=== PATIENT | male | born 1945 | race Caucasian/White ===

== ENCOUNTER → 2019-07-19 | Day surgery (SDC) | payer MEDICARE, BC | LOC: MSO 10:22 | DX: H25.812 Combined forms of age-related cataract, left eye (principal); I11.0 Hypertensive heart disease with heart failure; I50.9 Heart failure, unspecified; M10.9 Gout, unspecified; Z87.891 Personal history of nicotine dependence | CPT/HCPCS: 00142; J0171; J2250; V2632 ==

== ENCOUNTER 2020-11-25 17:25 | Outpatient (RCR) | payer MEDICARE, BC ==
[2020-11-13 18:08] VITALS: BP 116/72
--- NOTE | 2020-11-13 18:24 | NUR ---
PATIENT UNABLE TO RECALL CURRENT MEDICATIONS. WILL BRING LIST TO REVIEW ON October.
[2020-11-14 18:50] VITALS: BP 117/69
[2020-11-15 18:13] VITALS: BP 128/92
[2020-11-16 18:05] VITALS: BP 100/67
[2020-11-17 18:00] VITALS: BP 102/64
[2020-11-18 18:20] VITALS: BP 125/52
[2020-11-19 18:29] VITALS: BP 114/66
[2020-11-20 20:30] VITALS: BP 130/52
[2020-11-21 18:07] VITALS: BP 110/67
[2020-11-22 18:10] VITALS: BP 107/62
[2020-11-23 18:09] VITALS: BP 148/67
[2020-11-24 18:30] VITALS: BP 101/51
--- NOTE | 2020-11-24 18:40 | NUR ---
Pt states that he is having surgery on his left knee tomorrow with some block and antibiotic. Pt states he will not be in for a couple of days. Pt verbalizes understanding that he will need a new order when he returns to have future antibiotics.
[2020-11-25 17:35] VITALS: BP 104/68
== END 2020-11-25 19:00 | disposition home or self-care (01) ==
LOC: AMSURD 17:25
DX: A49.02 Methicillin resistant Staphylococcus aureus infection, unspecified site (principal); Z96.652 Presence of left artificial knee joint
CPT/HCPCS: J0878; J1644

== ENCOUNTER → 2020-11-25 | Outpatient (CLI) | payer MEDICARE, BC ==
[2020-11-18 18:37] LABS: HEMATOCRIT 29.5 % (42.0-52.0); HEMOGLOBIN 9.3 g/dL (13.5-18.0); MEAN PLATELET VOLUME 9.2 fl (7.4-10.4); RED BLOOD COUNT 3.73 M/mm3 (4.20-5.60); RED CELL DISTRIBUTION WIDTH 18.5 % (11.5-14.5)
[2020-11-18 18:41] LABS: ALBUMIN 3.2 g/dL (3.4-4.8)
[2020-11-18 18:43] LABS: CALCIUM 8.3 mg/dL (8.3-10.5)
[2020-11-18 18:44] LABS: TOTAL PROTEIN 6.5 g/dL (6.2-8.1)
[2020-11-18 18:46] LABS: TOTAL BILIRUBIN 0.4 mg/dL (0.2-1.2)
[~2020-11-25] MED LIST: ALLOPURINOL300 M1 PO; COMPAZINE10 M2 PO; COREG 3.123.125 MG/T PO; DECADRON 4MG TAB4 MG PO; DIFLUCAN100 M1 PO; DOCUSATE SODIUM1 TA3 PO; FLOMAX0.4 MG PO; LASIX40 M1 PO; MIRALAX17 GM PO; NEURONTIN100 M1 PO; ONDANSETRON ODT8 MG PO; TRENTAL 400MG400 MG PO; TYLENOL EXTRA500 M2 PO; WARFARIN SODIUM6 MG PO
[2020-11-25 18:44] LABS: HEMATOCRIT 31.8 % (42.0-52.0); HEMOGLOBIN 9.9 g/dL (13.5-18.0); RED BLOOD COUNT 3.99 M/mm3 (4.20-5.60); RED CELL DISTRIBUTION WIDTH 19.2 % (11.5-14.5); WHITE BLOOD COUNT 8.9 K/mm3 (4.8-10.8)
[2020-11-25 18:45] LABS: ALBUMIN 3.3 g/dL (3.4-4.8); POTASSIUM 3.8 mmol/L (3.5-5.1)
[2020-11-25 18:46] LABS: CALCIUM 8.6 mg/dL (8.3-10.5)
[2020-11-25 18:48] LABS: TOTAL PROTEIN 6.7 g/dL (6.2-8.1)
[2020-11-25 18:50] LABS: TOTAL BILIRUBIN 0.5 mg/dL (0.2-1.2)
== END ==
LOC: LAB 11-18 12:12
PROVIDERS: Internal Medicine Infectious Disease
DX: A49.02 Methicillin resistant Staphylococcus aureus infection, unspecified site (principal); T84.54XA Infection and inflammatory reaction due to internal left knee prosthesis, initial encounter

== ENCOUNTER → 2021-04-07 | Outpatient (CLI) | payer MEDICARE, BC | LOC: LAB 15:50 | DX: Z86.14 Personal history of Methicillin resistant Staphylococcus aureus infection (principal); Z79.2 Long term (current) use of antibiotics ==

== ENCOUNTER 2021-04-09 16:52 | Outpatient (RCR) | payer MEDICARE, BC ==
[2021-04-07 16:14] VITALS: BP 93/62
[2021-04-08 17:10] VITALS: BP 96/42
[~2021-04-09] VITALS: Ht 175.3 cm; Wt 100.0 kg
[2021-04-09 16:59] VITALS: BP 115/88
== END 2021-04-09 20:00 | disposition home or self-care (01) ==
LOC: AMSURD 16:52
DX: Z86.14 Personal history of Methicillin resistant Staphylococcus aureus infection (principal)
CPT/HCPCS: J0878

== ENCOUNTER 2024-04-19 11:29 | Emergency (ER) | payer MEDICARE, BC ==
[~2024-04-19] VITALS: Ht 175.3 cm; Wt 109.1 kg
[2024-04-19] MEDS ORDERED: Tdap Vaccine 0.5 ML SYRINGE IM ONE (12:15)
[2024-04-19] MEDS ORDERED: ALDACTONE 25MG25 MG PO (12:16)
[2024-04-19] MEDS ORDERED: JARDIANCE10 MG PO (12:21)
[2024-04-19] MEDS ORDERED: FUROSEMIDE20 MG PO (12:24)
[2024-04-19] MEDS ORDERED: LEVOTHYROXIN0.088 MG PO (12:24)
[2024-04-19] MEDS ORDERED: WARFARIN SODIUM4 MG PO (12:27)
[2024-04-19] MEDS ORDERED: LOSARTAN POTASS25 MG PO (12:28)
[2024-04-19] MEDS ORDERED: VIBRAMYCIN HYC100 MG PO (12:30)
[2024-04-19] MEDS ORDERED: cefTRIAXone 1 G in Water For Injection,Sterile 10 ML IV ONE (13:00)
[2024-04-19] MEDS ORDERED: NORCO 325 MG-51 TA1 PO (15:17)
[2024-04-19] MEDS ORDERED: CEPHALEXIN500 M1 PO (15:17)
[2024-04-19 15:49] VITALS: BP 104/88
== END 2024-04-19 15:51 | disposition home or self-care (01) ==
LOC: ED 11:29
DX: S91.312A Laceration without foreign body, left foot, initial encounter (principal); I48.91 Unspecified atrial fibrillation; Z85.828 Personal history of other malignant neoplasm of skin; Z95.810 Presence of automatic (implantable) cardiac defibrillator; Z92.21 Personal history of antineoplastic chemotherapy; Z92.3 Personal history of irradiation; Z79.01 Long term (current) use of anticoagulants; X50.1XXA Overexertion from prolonged static or awkward postures, initial encounter
CPT/HCPCS: 90715; J0696

== ENCOUNTER → 2024-04-26 | Outpatient (CLI) | payer MEDICARE, BC ==
[~2024-04-26] VITALS: Ht 175.3 cm; Wt 109.1 kg
[~2024-04-26] MED LIST changes: +ALDACTONE 25MG25 MG PO; +CEPHALEXIN500 M1 PO; +FUROSEMIDE20 MG PO; +JARDIANCE10 MG PO; +LEVOTHYROXIN0.088 MG PO; +LOSARTAN POTASS25 MG PO; +NORCO 325 MG-51 TA1 PO; +VIBRAMYCIN HYC100 MG PO; +WARFARIN SODIUM4 MG PO
[2024-04-26 17:10] VITALS: BP 105/66
== END ==
LOC: WOUND 15:34
DX: S91.301A Unspecified open wound, right foot, initial encounter (principal)
CPT/HCPCS: 18897; 19064; A6261

== ENCOUNTER → 2024-05-03 | Outpatient (CLI) | payer MEDICARE, BC ==
[~2024-05-03] MED LIST changes: +BACTRIM DS TAB1 EACH PO
[2024-05-03 09:05] VITALS: BP 104/69
[2024-05-03 10:41] LABS: BASO # 0.02 K/mm3 (0.02-0.10); EOS # 0.16 K/mm3 (0.04-0.40); EOS % 2.2 % (0.0-4.0); HEMATOCRIT 35.5 % (42.0-52.0); HEMOGLOBIN 11.1 g/dL (13.5-18.0); LYMPH# 0.61 K/mm3 (1.50-4.00); MEAN CELL VOLUME 85 fl (78-100); MEAN CORPUSCULAR HEMOGLOBIN 27 pg (27-31); MEAN CORPUSCULAR HGB CONC 31 g/dL (33-37); MEAN PLATELET VOLUME 8.9 fl (7.4-10.4); MONO # 0.85 K/mm3 (0.20-0.80); NEU # 5.68 K/mm3 (1.40-6.50); PLATELET COUNT 279 K/mm3 (130-400); RED BLOOD COUNT 4.18 M/mm3 (4.20-5.60); RED CELL DISTRIBUTION WIDTH 16.3 % (11.5-14.5); WHITE BLOOD COUNT 7.4 K/mm3 (4.8-10.8)
== END ==
LOC: WOUND 09:01 → LAB 09:01
DX: S91.301A Unspecified open wound, right foot, initial encounter (principal)
CPT/HCPCS: 18893; 18897; A6197

== ENCOUNTER → 2024-05-10 | Outpatient (CLI) | payer MEDICARE, BC ==
[~2024-05-10] VITALS: Ht 175.3 cm; Wt 109.1 kg
--- NOTE | 2024-05-10 09:07 | NUR ---
SEE PROVIDER NOTE FROM Monisha THOMPSON APRN
[2024-05-10 09:08] VITALS: BP 117/79
== END ==
LOC: WOUND 09:02
DX: S91.301A Unspecified open wound, right foot, initial encounter (principal)
CPT/HCPCS: 18893; 18895; 18897; A6021; A6197

== ENCOUNTER → 2024-05-12 | Outpatient (CLI) | payer MEDICARE, BC ==
[~2024-05-12] VITALS: Ht 175.3 cm; Wt 109.1 kg
[2024-05-12 09:21] VITALS: BP 102/69
--- NOTE | 2024-05-12 09:23 | NUR ---
see provider note from billy clarke aprn
== END ==
LOC: WOUND 08:51
DX: S91.301A Unspecified open wound, right foot, initial encounter (principal)
CPT/HCPCS: 18893; 18897; A6197

== ENCOUNTER → 2024-05-15 | Outpatient (CLI) | payer MEDICARE, BC ==
[~2024-05-15] VITALS: Ht 175.3 cm; Wt 109.1 kg
[2024-05-15 13:59] VITALS: BP 117/81
== END ==
LOC: WOUND 13:30
DX: S91.301A Unspecified open wound, right foot, initial encounter (principal)
CPT/HCPCS: 18897

== ENCOUNTER → 2024-05-19 | Outpatient (CLI) | payer MEDICARE, BC ==
[~2024-05-19] VITALS: Ht 175.3 cm; Wt 109.1 kg
[2024-05-19 17:01] VITALS: BP 105/69
== END ==
LOC: WOUND 14:51
DX: L08.9 Local infection of the skin and subcutaneous tissue, unspecified (principal)
CPT/HCPCS: 18895; 18897; 19899; A6021

== ENCOUNTER → 2024-05-23 | Outpatient (CLI) | payer MEDICARE, BC ==
[~2024-05-23] VITALS: Ht 175.3 cm; Wt 109.1 kg
--- NOTE | 2024-05-23 15:10 | NUR ---
SEE PROVIDER NOTE FROM Monisha THOMPSON APRN
[2024-05-23 15:17] VITALS: BP 101/66
== END ==
LOC: WOUND 15:05
DX: S91.301A Unspecified open wound, right foot, initial encounter (principal)
CPT/HCPCS: 18897; 19064; A6261

== ENCOUNTER → 2024-05-23 | Outpatient (RCR) | payer MEDICARE, BC ==
[2024-05-19 15:36] VITALS: BP 105/69
[2024-05-19 15:52] LABS: HEMATOCRIT 35.5 % (42.0-52.0); HEMOGLOBIN 11.3 g/dL (13.5-18.0); MEAN CELL VOLUME 83 fl (78-100); MEAN CORPUSCULAR HEMOGLOBIN 27 pg (27-31); MEAN CORPUSCULAR HGB CONC 32 g/dL (33-37); MEAN PLATELET VOLUME 9.3 fl (7.4-10.4); PLATELET COUNT 230 K/mm3 (130-400); RED BLOOD COUNT 4.27 M/mm3 (4.20-5.60); RED CELL DISTRIBUTION WIDTH 15.2 % (11.5-14.5); WHITE BLOOD COUNT 5.8 K/mm3 (4.8-10.8)
[2024-05-19 15:59] LABS: CALCIUM 9.7 mg/dL (8.3-10.5)
[2024-05-19 16:01] LABS: TOTAL PROTEIN 7.3 g/dL (6.2-8.1)
[2024-05-19 16:02] LABS: TOTAL BILIRUBIN 0.4 mg/dL (0.2-1.2)
[2024-05-19 16:19] LABS: LYMPHOCYTE 9 % (20-51); MONOCYTE 9 % (3-10); NEUTROPHILS 78 % (42-75)
[2024-05-20 16:20] VITALS: BP 94/61
[2024-05-21 16:00] VITALS: BP 89/59
[2024-05-22 15:56] VITALS: BP 104/60
[~2024-05-23] VITALS: Ht 175.3 cm; Wt 109.1 kg
[~2024-05-23] MED LIST changes: +DAPTOmycin 500 MG in NS 10 ML IV SCH
[2024-05-23 15:10] VITALS: BP 101/66
== END | disposition home or self-care (01) ==
LOC: AMSURD
DX: S99.922D Unspecified injury of left foot, subsequent encounter (principal)
CPT/HCPCS: J0878

== ENCOUNTER 2024-05-25 15:56 | Outpatient (RCR) | payer MEDICARE, BC ==
[2024-05-24 16:30] VITALS: BP 95/62
[~2024-05-25] VITALS: Ht 175.3 cm; Wt 109.1 kg
[2024-05-25 16:09] VITALS: BP 115/76
[2024-05-26 16:37] VITALS: BP 124/79
== END 2024-05-25 17:00 | disposition home or self-care (01) ==
LOC: AMSURD 15:56
DX: S91.101D Unspecified open wound of right great toe without damage to nail, subsequent encounter (principal); S91.105D Unspecified open wound of left lesser toe(s) without damage to nail, subsequent encounter; X58.XXXD Exposure to other specified factors, subsequent encounter
CPT/HCPCS: J0878

== ENCOUNTER → 2024-05-26 | Outpatient (CLI) | payer MEDICARE, BC ==
[~2024-05-26] VITALS: Ht 175.3 cm; Wt 109.1 kg
[~2024-05-26] MED LIST changes: -DAPTOmycin 500 MG in NS 10 ML IV SCH; +DOXYCYCLINE HY100 M5 PO
[2024-05-26 16:24] LABS: HEMATOCRIT 34.2 % (42.0-52.0); HEMOGLOBIN 10.8 g/dL (13.5-18.0); MEAN CELL VOLUME 84 fl (78-100); MEAN CORPUSCULAR HEMOGLOBIN 27 pg (27-31); MEAN CORPUSCULAR HGB CONC 32 g/dL (33-37); MEAN PLATELET VOLUME 9.1 fl (7.4-10.4); PLATELET COUNT 256 K/mm3 (130-400); RED BLOOD COUNT 4.08 M/mm3 (4.20-5.60); RED CELL DISTRIBUTION WIDTH 14.7 % (11.5-14.5); WHITE BLOOD COUNT 6.2 K/mm3 (4.8-10.8)
[2024-05-26 16:26] LABS: ALBUMIN 3.8 g/dL (3.4-4.8)
[2024-05-26 16:27] LABS: CALCIUM 9.5 mg/dL (8.3-10.5)
[2024-05-26 16:29] LABS: TOTAL PROTEIN 7.7 g/dL (6.2-8.1)
[2024-05-26 16:30] LABS: TOTAL BILIRUBIN 0.5 mg/dL (0.2-1.2)
[2024-05-26 16:56] LABS: LYMPHOCYTE 10 % (20-51); MONOCYTE 12 % (3-10); NEUTROPHILS 76 % (42-75)
[2024-05-26 16:59] LABS: MICROCYTOSIS 1+
[2024-05-26 17:53] VITALS: BP 124/79
--- NOTE | 2024-05-26 17:53 | NUR ---
SEE PROVIDER NOTE FROM Monisha THOMPSON APRN
== END ==
LOC: LAB 10:43 → WOUND 15:57
DX: T81.30XA Disruption of wound, unspecified, initial encounter (principal); B95.62 Methicillin resistant Staphylococcus aureus infection as the cause of diseases classified elsewhere
CPT/HCPCS: 18897; 19899

== ENCOUNTER → 2024-06-01 | Outpatient (CLI) | payer MEDICARE, BC ==
[~2024-06-01] VITALS: Ht 175.3 cm; Wt 109.1 kg
[2024-06-01 16:18] VITALS: BP 124/83
[2024-06-01 18:01] LABS: BASO # 0.02 K/mm3 (0.02-0.10); EOS # 0.23 K/mm3 (0.04-0.40); EOS % 3.2 % (0.0-4.0); HEMOGLOBIN 11.8 g/dL (13.5-18.0); LYMPH# 0.72 K/mm3 (1.50-4.00); MEAN CELL VOLUME 83 fl (78-100); MEAN CORPUSCULAR HEMOGLOBIN 27 pg (27-31); MEAN CORPUSCULAR HGB CONC 32 g/dL (33-37); MEAN PLATELET VOLUME 8.4 fl (7.4-10.4); MONO # 0.88 K/mm3 (0.20-0.80); NEU # 5.16 K/mm3 (1.40-6.50); PLATELET COUNT 320 K/mm3 (130-400); RED BLOOD COUNT 4.46 M/mm3 (4.20-5.60); RED CELL DISTRIBUTION WIDTH 14.4 % (11.5-14.5); WHITE BLOOD COUNT 7.1 K/mm3 (4.8-10.8)
[2024-06-01 18:06] LABS: ALBUMIN 4.1 g/dL (3.4-4.8)
[2024-06-01 18:07] LABS: CALCIUM 9.9 mg/dL (8.3-10.5)
[2024-06-01 18:08] LABS: TOTAL PROTEIN 7.9 g/dL (6.2-8.1)
[2024-06-01 18:10] LABS: TOTAL BILIRUBIN 0.5 mg/dL (0.2-1.2)
== END ==
LOC: WOUND 16:12
DX: T81.30XA Disruption of wound, unspecified, initial encounter (principal); R79.89 Other specified abnormal findings of blood chemistry; L08.9 Local infection of the skin and subcutaneous tissue, unspecified
CPT/HCPCS: 18897

== ENCOUNTER → 2024-06-07 | Outpatient (CLI) | payer MEDICARE, BC ==
[~2024-06-07] VITALS: Ht 175.3 cm; Wt 109.1 kg
[2024-06-07 16:02] VITALS: BP 112/73
== END ==
LOC: WOUND 15:52
DX: T81.30XA Disruption of wound, unspecified, initial encounter (principal)
CPT/HCPCS: 18897

== ENCOUNTER → 2024-06-14 | Outpatient (CLI) | payer MEDICARE, BC ==
[~2024-06-14] VITALS: Ht 175.3 cm; Wt 109.1 kg
[2024-06-14 11:43] VITALS: BP 101/69
--- NOTE | 2024-06-14 12:11 | NUR ---
PT HERE FOR WOUND CARE TO RT GREAT TOE. NOTED PT'S BP IS A LITTLE LOWER TODAY 101/69. 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 STATES HE HAS NOTICED SOME LIGHT HEADEDNES. HE IS DUE FOR LABS NEXT WEEK. HIS RT GREAT TOE DRESSING IS PRETTY BLOODY TODAY. STATES IT HAS BEEN CHANGED EVERY OTHER DAY, INSTRUCTED, BUT IT DID COME OFF IN BED ONE NIGHT. Monisha THOMPSON APRN DEBRIDED THE 2 OPEN WOUNDS ON RT GREAT TOE WITH 3MM CURETTE. THEN CLEANED WITH HIBICLENS AND DEBRISOFT LOLLY. JET LAVAGED WITH STERILE WATER. DRY FOOT WITH 4X4'S. REDRESSED BOTH WOUNDS WITH COLLAGEN, AQUACEL AG AND MEPILEX BORDER FOAM. MEASUREMENTS TAKEN AND PICS TAKEN TODAY. SEE PROVIDER NOTE FOR MEASUREMENTS. LEFT FACILITY AMBULATORY WITH [facility]. SPLUNK DASHBOARD DEVELOPER TO PICK HIM UP. STEADY GAIT. NEXT APPT 06/21/24
--- NOTE | 2024-06-19 09:51 | NUR ---
RECEIVED VOICEMAIL FROM PATIENTS DAUGHTER THAT WOUND DRESSING CHANGE HAS BEEN NEEDE DAILY DUE TO INCREASED DRAINAGE OVER THE WEEKEND, OF YESTERDAY DRIANAGE HAS BEEN NOTED TO BE A "YELLOW/GREEN COLOR". THIS RN CALLED TO RESCHEDULE PATIENT TO A SOONER DATE, PATIENT SCHEDULED FOR 06/20/24 AT 11AM.
== END ==
LOC: WOUND 11:25
DX: T81.30XA Disruption of wound, unspecified, initial encounter (principal)
CPT/HCPCS: 18893; 18895; 18897; A6021; A6197

== ENCOUNTER → 2024-06-20 | Outpatient (CLI) | payer MEDICARE, BC ==
[~2024-06-20] VITALS: Ht 175.3 cm; Wt 109.1 kg
[2024-06-20 11:02] VITALS: BP 113/71
--- NOTE | 2024-06-20 11:20 | NUR ---
PT HERE FOR WOUND CARE TO RT GREAT TOE STUMP. THERE ARE 2 WOUNDS ON PLANTAR SURFACE - THE PROXIMAL WOUND HAS A PINK WOUND BED - NO SLOUGH NOTED, MINIMAL MACERATION AROUND THE UPPER OUTER EDGE OF WOUND. WOUND MEASURES 0.8L X 0.6W NO DEPTH AND HAD MINIMAL DRAINAGE TODAY. HOWEVER DTR HAS BEEN CHANGING DRESSINGS DAILY DUE TO INCREASED DRAINAGE THAT SHE STATES IS NOW PURULENT. PT TOOK ONE OF HIS KEFLEX TABS HE HAD LEFT AND NOW THE DRAINAGE HAS SLOWED BACK DOWN. CULTURED WOUND TODAY AND WILL AWAIT SENSITIVITY REPORT BEFORE PLACING PT ON MORE ANTIBIOTICS. THE DISTAL WOUND IS COVERED WITH HARD BLACK ESCHAR TODAY. WOUND MEASURES 0.5L X 0.8W. NO DEPTH TO MEASURE. NO DRAINAGE. CLEANED WOUNDS WITH HIBICLENS AND DEBRISOFT LOLLY PRIOR TO CULTURE. JET LAVAGED WITH STERILE WATER AND PATTED DRY WITH 4X4'S. SKIN PREPPED AROUND WOUNDS. APPLIED COLLAGEN TO THE PROXIMAL WOUND BED AND COVERED BOTH WOUNDS WITH AQUACEL EXTRA AND MEPILEX BORDER FOAM. PT WILL CONTINUE TO CHANGE DRESSING DAILY AT HOME AND WILL RETURN WEDNESDAY IF DTR THINKS HE NEEDS TO BE SEEN, OTHERWISE WILL RETURN ON WEDNESDAY NEXT WEEK. SUPPLIES SENT HOME WITH PATIENT. PT LEAVES AMBULATORY WITH [facility]ALK[facility]. STATES HE WONT BE GETTING NEW SHOE INSOLES UNTIL MID-JUN NOW. CULTURE OF PROXIMAL WOUND SENT TO LAB.
--- NOTE | 2024-06-23 18:10 | NUR ---
DAUGHTER CALLED TO CHECK ON WOUND CULTURE FINAL RESULTS THIS AM, RESULTS WERE UNAVAILABLE AT THAT TIME. DAUGHTER REPORTS WANTING TO CANCEL APPT FOR TODAY. FINAL WOUND CULTURE RESULTS RECIEVED REVEALED MRSA, CALLED TO DR. VARMA INFECTIOUS DISEASE OFFICE. IGNACIO MACARIO FROM DR. VARMA OFFICE REPORTS PATIENT WILL BE SEEN ON Wednesday06/26/24 FOR ANTIBIOTIC START AND POSSIBLE SURGICAL DEBRIDEMENT.
== END ==
LOC: WOUND 10:53
DX: T81.30XA Disruption of wound, unspecified, initial encounter (principal)

== ENCOUNTER → 2024-06-27 | Outpatient (CLI) | payer MEDICARE, BC ==
[~2024-06-27] VITALS: Ht 175.3 cm; Wt 109.1 kg
[2024-06-27 14:49] VITALS: BP 117/76
--- NOTE | 2024-06-27 14:52 | NUR ---
PT HERE FOR WOUND CARE TO RT GREAT TOE. CULTURE GREW MRSA THAT WAS ONLY SUSCEPTIBLE TO VANCO. STARTED ON DAPTO TODAY. LABS DRAWN PRIOR TO MED STARTED FOR BASELINE. THE DISTAL WOUND IS A LITTLE MACERATED TODAY. PT STATES IT HAS HAD MORE DRAINAGE AND THEY HAVE BEEN CHANGING DRESSING DAILY. LAST CHANGED YESTERDAY. DEBRIDED BY Monisha THOMPSON APRN. PT RANJITH WELL. CLEANED WITH HIBICLENS AND DEBRISOFT LOLLY. JET LAVAGED WITH STERILE WATER. PATTED DRY WITH 4X4. APPLIED IODOSORB TO WOUND BED, COVERED WITH AQUACEL EXTRA AND MEPILEX BORDER FOAM. SEE PROVIDER NOTE FROM Monisha THOMPSON APRN FOR MEASUREMENTS.
[2024-06-27 15:00] LABS: ALBUMIN 4.1 g/dL (3.4-4.8)
[2024-06-27 15:01] LABS: CALCIUM 9.5 mg/dL (8.3-10.5)
[2024-06-27 15:02] LABS: TOTAL PROTEIN 7.5 g/dL (6.2-8.1)
[2024-06-27 15:04] LABS: TOTAL BILIRUBIN 0.5 mg/dL (0.2-1.2)
== END ==
LOC: WOUND 14:04
DX: T81.30XA Disruption of wound, unspecified, initial encounter (principal)
CPT/HCPCS: 18897; 19064; 19899; A6261

== ENCOUNTER → 2024-06-29 | Outpatient (CLI) | payer MEDICARE, BC ==
[2024-06-29 16:06] LABS: BASO # 0.02 K/mm3 (0.02-0.10); EOS # 0.18 K/mm3 (0.04-0.40); EOS % 2.8 % (0.0-4.0); HEMATOCRIT 37.7 % (42.0-52.0); HEMOGLOBIN 11.8 g/dL (13.5-18.0); LYMPH# 0.76 K/mm3 (1.50-4.00); MEAN CELL VOLUME 82 fl (78-100); MEAN CORPUSCULAR HEMOGLOBIN 26 pg (27-31); MEAN CORPUSCULAR HGB CONC 31 g/dL (33-37); MEAN PLATELET VOLUME 9.6 fl (7.4-10.4); MONO # 0.72 K/mm3 (0.20-0.80); NEU # 4.81 K/mm3 (1.40-6.50); PLATELET COUNT 219 K/mm3 (130-400); RED BLOOD COUNT 4.59 M/mm3 (4.20-5.60); RED CELL DISTRIBUTION WIDTH 14.7 % (11.5-14.5); WHITE BLOOD COUNT 6.5 K/mm3 (4.8-10.8)
== END ==
LOC: LAB 15:26
DX: S99.922A Unspecified injury of left foot, initial encounter (principal); I10 Essential (primary) hypertension; E78.5 Hyperlipidemia, unspecified

== ENCOUNTER → 2024-06-30 | Outpatient (CLI) | payer MEDICARE, BC ==
[~2024-06-30] VITALS: Ht 175.3 cm; Wt 109.1 kg
[2024-06-30 12:50] VITALS: BP 91/57
--- NOTE | 2024-06-30 12:50 | NUR ---
Pt arrives ambulatory for wound care to right great toe. Current dressing to right toe removed. For wound care details please see progress note from Paula Tsai APRN. Pt tolerated wound care well. Appt set up for WednesdayJul 07 @ 1100. Labs from 06/29/24 shown to COUNTY SURVEYOR. Pt continues on Dapto IV daily.
== END ==
LOC: WOUND 14:28
DX: T81.33XD Disruption of traumatic injury wound repair, subsequent encounter (principal); M00.062 Staphylococcal arthritis, left knee; B95.62 Methicillin resistant Staphylococcus aureus infection as the cause of diseases classified elsewhere; Z89.411 Acquired absence of right great toe; M96.89 Other intraoperative and postprocedural complications and disorders of the musculoskeletal system
CPT/HCPCS: 18897

== ENCOUNTER → 2024-07-26 | Outpatient (CLI) | payer MEDICARE, BC ==
[~2024-07-26] VITALS: Ht 175.3 cm; Wt 109.1 kg
[2024-07-26 12:05] VITALS: BP 112/74
--- NOTE | 2024-07-26 12:11 | NUR ---
PATIENT HERE FOR WOUND CARE TO RIGHT GREAT TOE. REPORTS LAST DRESSING CHANGE WAS ON WEDNESDAY. DRESSING REMOVED, DRIED BLOOD NOTED COVERING MOST OF THE POSTERIOR GREAT TOE. AREA MACERATED AND BOGGY. DENIES GETTING NEW INSERTS OF THIS DATE. REPORTS INCREASE IN DRAINAGE WITH THE LAST 2 DRESSING CHANGES. GREAT TOE INFLAMMED. WOUND CULTURE. ORDERS FOR XRAY TO RIGHT FOOT. HIBICLENSE AND DEBRISOFT LOLLI. COLLAGEN TO WOUND BED AND AQUACEL EXTRA AND MEPILEX BORDER FOAM. CHANGE DRESSING DAILY.
== END ==
LOC: WOUND 11:56
DX: T81.31XA Disruption of external operation (surgical) wound, not elsewhere classified, initial encounter (principal); D84.9 Immunodeficiency, unspecified; I48.91 Unspecified atrial fibrillation; Z79.01 Long term (current) use of anticoagulants; C61 Malignant neoplasm of prostate; Z92.3 Personal history of irradiation
CPT/HCPCS: A6021

== ENCOUNTER → 2024-08-06 | Outpatient (CLI) | payer MEDICARE, BC ==
[2024-08-06 16:54] LABS: HEMATOCRIT 37.5 % (42.0-52.0); MEAN PLATELET VOLUME 10.3 fl (7.4-10.4); RED BLOOD COUNT 4.73 M/mm3 (4.20-5.60); RED CELL DISTRIBUTION WIDTH 15.1 % (11.5-14.5); WHITE BLOOD COUNT 6.5 K/mm3 (4.8-10.8)
[2024-08-06 17:01] LABS: ALBUMIN 3.8 g/dL (3.4-4.8)
[2024-08-06 17:02] LABS: CALCIUM 9.5 mg/dL (8.3-10.5)
[2024-08-06 17:03] LABS: TOTAL PROTEIN 7.5 g/dL (6.2-8.1)
[2024-08-06 17:05] LABS: TOTAL BILIRUBIN 0.6 mg/dL (0.2-1.2)
== END ==
LOC: LAB 16:15
DX: S91.301A Unspecified open wound, right foot, initial encounter (principal)

== ENCOUNTER 2024-08-12 15:54 | Outpatient (RCR) | payer MEDICARE, BC ==
[2024-07-30 15:13] VITALS: BP 113/76
[2024-07-31 16:12] VITALS: BP 106/67
[2024-08-01 16:16] VITALS: BP 107/71
[2024-08-02 16:16] VITALS: BP 117/76
[2024-08-03 16:09] VITALS: BP 100/66
[2024-08-04 16:54] VITALS: BP 105/68
[2024-08-05 16:23] VITALS: BP 99/66
[2024-08-06 16:11] VITALS: BP 102/68
[2024-08-07 16:08] VITALS: BP 103/67
[2024-08-08 16:03] VITALS: BP 119/76
[2024-08-09 16:15] VITALS: BP 109/70
[2024-08-10 16:02] VITALS: BP 97/63
[2024-08-11 16:18] VITALS: BP 112/69
[~2024-08-12] VITALS: Ht 175.3 cm; Wt 109.1 kg
[~2024-08-12 15:54] MED LIST changes: +DAPTOmycin 500 MG in NS 10 ML IV SCH
[2024-08-12 16:10] VITALS: BP 102/61
== END 2024-08-12 16:30 | disposition home or self-care (01) ==
LOC: AMSURD 15:54
DX: A49.02 Methicillin resistant Staphylococcus aureus infection, unspecified site (principal)
CPT/HCPCS: A6021; J0878

== ENCOUNTER → 2024-08-12 | Outpatient (REF) | payer MEDICARE, BC ==
[2024-08-12 16:31] LABS: HEMATOCRIT 36.7 % (42.0-52.0); HEMOGLOBIN 11.8 g/dL (13.5-18.0); MEAN PLATELET VOLUME 10.6 fl (7.4-10.4); RED BLOOD COUNT 4.63 M/mm3 (4.20-5.60); RED CELL DISTRIBUTION WIDTH 15.3 % (11.5-14.5); WHITE BLOOD COUNT 6.6 K/mm3 (4.8-10.8)
[2024-08-12 16:36] LABS: ALBUMIN 3.9 g/dL (3.4-4.8)
[2024-08-12 16:37] LABS: CALCIUM 9.5 mg/dL (8.3-10.5)
[2024-08-12 16:38] LABS: TOTAL PROTEIN 7.4 g/dL (6.2-8.1)
[2024-08-12 16:40] LABS: TOTAL BILIRUBIN 0.6 mg/dL (0.2-1.2)
== END ==
LOC: LAB 16:15
DX: S91.301A Unspecified open wound, right foot, initial encounter (principal); X58.XXXA Exposure to other specified factors, initial encounter